=== PATIENT | female | born 1945 | race Two or more races ===

== ENCOUNTER 2025-01-14 13:33 | Inpatient (IN) | payer OTHER, MEDICARE ==
[2025-01-14] VITALS (36 sets, daily range): BP systolic 73–127; BP diastolic 37–89; PULSE 43–79; RESP 12–30; TEMP 36.3–36.7; O2SAT 95–100
[~2025-01-14] VITALS: Ht 165.1 cm; Wt 81.2 kg
[2025-01-14] MEDS ORDERED: LIDOCAINE HCL 1% 20ML VIAL ONE (13:40)
[2025-01-14] MEDS ORDERED: EPINEPHRINE 0.1MG/ML (1:10,000) 10ML SYR ONE (13:40)
[2025-01-14] MEDS ORDERED: IODIXANOL 320 MG/ML 150ML BOTTLE IV ONE (13:40)
[2025-01-14] MEDS ORDERED: HEPARIN 1000 UNITS/ML 10ML ONE (13:40)
[2025-01-14] MEDS ORDERED: ATROPINE SULFATE 1MG/10ML SYR ONE (13:40)
[2025-01-14] MEDS ORDERED: FENTANYL CITRATE/PF 50MCG/ML 2ML VIAL ONE (13:44)
[2025-01-14] MEDS ORDERED: MIDAZOLAM HCL 2 MG/2 ML VIAL ONE (13:44)
[2025-01-14] MEDS: HEPARIN 5000 UNITS/ML VIAL IV ONE (13:46)
[2025-01-14] MEDS ORDERED: DOPAMINE 400MG/250ML PREMIX 250 ML IV ONE (13:49)
[2025-01-14 13:57] LABS: BASOPHILS % 0.6 % (0.0-2.0); EOSINOPHILS % 0.2 % (0.0-5.0); HEMATOCRIT. 39.3 % (36.0-48.0); HEMOGLOBIN. 13.4 g/dL (12.0-16.0); LYMPHOCYTES % 28.1 % (20.0-50.0); MEAN PLATELET VOLUME 8.2 fl (7.4-10.4); MONOCYTES % 8.5 % (2.0-8.0); NEUTROPHILS % 62.6 % (40.0-76.0); PLATELET 339 x1000/uL (130-400); RED BLOOD CELL COUNT 4.22 mill/uL (4.2-5.4); RED CELL DISTRIBUTION WIDTH 13.3 % (11.6-14.6)
[2025-01-14 14:08] LABS: INR 0.9
[2025-01-14 14:13] LABS: CREATININE 1.0 mg/dL (0.6-1.0)
[2025-01-14 14:14] LABS: UREA NITROGEN BLOOD 15 mg/dL (9-23)
[2025-01-14 14:16] LABS: ASPARTATE AMINOTRANSFERASE 37 IU/L (<34); BILIRUBIN DIRECT 0.1 mg/dL (<=3.0); BILIRUBIN TOTAL 0.7 mg/dL (0.1-1.0); PROTEIN TOTAL 7.4 g/dL (6.0-8.3)
[2025-01-14] MEDS ORDERED: EPTIFIBATIDE 2 MG/ML 10ML VIAL IV ONE (14:18)
[2025-01-14 14:24] LABS: TROPONIN I HIGH SENSITIVITY 155 ng/L (3.0-34)
[2025-01-14] MEDS ORDERED: TICAGRELOR 90 MG TABLET PO ONE (14:28)
[2025-01-14] MEDS ORDERED: NOREPINEPHRINE 8MG in NS 250ML PREMIX IV ONE (14:49)
[2025-01-14] MEDS ORDERED: ATROPINE SULFATE 1MG/10ML SYR IV PRN (15:00)
[2025-01-14] MEDS: ASPIRIN 81MG EC TABLET PO NR (15:00)
[2025-01-14] MEDS ORDERED: ACETAMINOPHEN 325MG TABLET PO PRN ×2 (15:00)
[2025-01-14] MEDS: SODIUM CHLORIDE 0.9% 1,000 ML IV SCH (16:23)
[2025-01-14] MEDS: FAMOTIDINE 20MG/2ML VIAL IV SCH (17:17)
[2025-01-14 18:01] LABS: TROPONIN I HIGH SENSITIVITY 17494 ng/L (3.0-34)
[2025-01-14 20:39] LABS: TROPONIN I HIGH SENSITIVITY 31255 ng/L (3.0-34)
[2025-01-14] MEDS: TICAGRELOR 90 MG TABLET PO SCH (20:49)
[2025-01-14] MEDS: ATORVASTATIN CALCIUM 40MG TABLET PO SCH (20:49)
[2025-01-15] VITALS (60 sets, daily range): BP systolic 68–132; BP diastolic 26–80; PULSE 40–66; RESP 10–29; TEMP 36.3–36.6; O2SAT 95–100
[2025-01-15 06:05] LABS: BASOPHILS % 0.4 % (0.0-2.0); EOSINOPHILS % 0.4 % (0.0-5.0); HEMATOCRIT. 32.1 % (36.0-48.0); HEMOGLOBIN. 11.1 g/dL (12.0-16.0); LYMPHOCYTES % 23.4 % (20.0-50.0); MEAN PLATELET VOLUME 8.6 fl (7.4-10.4); MONOCYTES % 9.1 % (2.0-8.0); NEUTROPHILS % 66.7 % (40.0-76.0); PLATELET 260 x1000/uL (130-400); RED BLOOD CELL COUNT 3.46 mill/uL (4.2-5.4); RED CELL DISTRIBUTION WIDTH 13.5 % (11.6-14.6)
[2025-01-15 06:17] LABS: CREATININE 0.7 mg/dL (0.6-1.0); UREA NITROGEN BLOOD 11 mg/dL (9-23)
[2025-01-15 06:25] LABS: CLARITY URINE CLEAR (CLEAR); COLOR URINE YELLOW (YELLOW); GLUCOSE URINE NEGATIVE (NEGATIVE); KETONES URINE TRACE (NEGATIVE); LEUKOCYTE ESTERASE URINE NEGATIVE (NEGATIVE); NITRITE URINE NEGATIVE (NEGATIVE); OCCULT BLOOD URINE NEGATIVE (NEGATIVE); PH URINE 6.5 (4.5-8.0); PROTEIN URINE NEGATIVE (NEGATIVE); SPECIFIC GRAVITY URINE 1.025 (1.005-1.030); UROBILINOGEN URINE 0.2 E.U./dL (0.2-1.0)
[2025-01-15] MEDS: ASPIRIN 81MG TABLET PO SCH (10:44)
[2025-01-15] MEDS: ALPRAZOLAM 0.25 MG TABLET PO PRN (10:45)
[2025-01-15] MEDS: FUROSEMIDE 40MG/4ML VIAL IVP SCH (12:02)
[2025-01-15] MEDS ORDERED: NOREPINEPHRINE 8MG/250ML PMX 250 ML IV PRN (14:15)
[2025-01-15] MEDS: SODIUM CHLORIDE 0.9% 250 ML IV NR (14:39)
[2025-01-15] MEDS: MIDODRINE HCL 5MG TABLET PO SCH (14:39)
[2025-01-16] VITALS (27 sets, daily range): BP systolic 85–144; BP diastolic 34–87; PULSE 44–70; RESP 16–31; TEMP 36–36.8; O2SAT 96–99
[2025-01-16] MEDS: ALPRAZOLAM 0.25 MG TABLET PO PRN (00:46)
[2025-01-16] MEDS: ATROPINE SULFATE 1MG/10ML SYR IV PRN (07:10)
[2025-01-16 09:49] LABS: BASOPHILS % 0.5 % (0.0-2.0); EOSINOPHILS % 1.0 % (0.0-5.0); HEMATOCRIT. 32.6 % (36.0-48.0); HEMOGLOBIN. 11.1 g/dL (12.0-16.0); LYMPHOCYTES % 24.1 % (20.0-50.0); MEAN PLATELET VOLUME 8.7 fl (7.4-10.4); MONOCYTES % 10.2 % (2.0-8.0); NEUTROPHILS % 64.2 % (40.0-76.0); PLATELET 293 x1000/uL (130-400); RED BLOOD CELL COUNT 3.51 mill/uL (4.2-5.4); RED CELL DISTRIBUTION WIDTH 13.0 % (11.6-14.6)
[2025-01-16 10:06] LABS: CREATININE 0.8 mg/dL (0.6-1.0); UREA NITROGEN BLOOD 11 mg/dL (9-23)
[2025-01-16 10:39] LABS: LDL CHOLESTEROL 176.0 mg/dL (5-100); TRIGLYCERIDE 275.0 mg/dL (0-150)
[2025-01-17] VITALS: BP 105/42; PULSE 52; RESP 18; TEMP 36; O2SAT 97
[2025-01-17 04:00] VITALS: BP 116/66; PULSE 51; RESP 18; TEMP 35.9; O2SAT 98
[2025-01-17] MEDS ORDERED: MIDO10TA3 MT (14:57)
[2025-01-17] MEDS ORDERED: ASPI-1160 PO (14:57)
[2025-01-17] MEDS ORDERED: TICA90TA PO (14:57)
[2025-01-17] MEDS ORDERED: LIP40 PO (14:57)
[2025-01-17 16:06] VITALS: BP 143/47; PULSE 52; TEMP 98; O2SAT 100
== END 2025-01-17 17:30 | disposition home or self-care (01) | DRG 321 ==
LOC: ER 13:33 → CVICU 14:13 → 8WST 01-16 21:15
PROVIDERS: ADMIT Internal Medicine; ATTEND Internal Medicine
PROC: 027034Z Dilation of Coronary Artery, One Artery with Drug-eluting Intraluminal Device, Percutaneous Approach (ICD-10-PCS; principal; 2025-01-14)
PROC: 4A023N7 Measurement of Cardiac Sampling and Pressure, Left Heart, Percutaneous Approach (ICD-10-PCS; 2025-01-14)
PROC: B211YZZ Fluoroscopy of Multiple Coronary Arteries using Other Contrast (ICD-10-PCS; 2025-01-14)
PROC: B215YZZ Fluoroscopy of Left Heart using Other Contrast (ICD-10-PCS; 2025-01-14)
DX: I21.19 ST elevation (STEMI) myocardial infarction involving other coronary artery of inferior wall (principal); I50.43 Acute on chronic combined systolic (congestive) and diastolic (congestive) heart failure; J96.91 Respiratory failure, unspecified with hypoxia; Z88.5 Allergy status to narcotic agent; Z95.5 Presence of coronary angioplasty implant and graft; Z79.02 Long term (current) use of antithrombotics/antiplatelets; Z55.6 Problems related to health literacy
CPT/HCPCS: 36415; 71045; 80048; 80061; 80076; 81003; 83036; 83735; 83880; 84443; 84484; 85025; 85347; 86850; 86900; 92941; 93005; 93306; 93458; 93970; 99291; A4606; C1769; C1874; C1887; C1893; J0461; J1265; J1308; J1327; J1644; J1938; J2003; J2250; J3010; J3490; J7030; Q9967; J8499